=== PATIENT | male | born 1950 | race Caucasian/White ===

== ENCOUNTER 2021-04-24 12:01 | Emergency (ER) | payer MEDICARE, MEDICAID ==
[~2021-04-24] VITALS: Ht 172.7 cm; Wt 63.5 kg
[2021-04-24] MEDS ORDERED: ATROPINE SULF 1 MG/10ml SYR IM ONE (12:02)
[2021-04-24] MEDS ORDERED: SODIUM BICARBONATE 8.4% INJ 50ML SYRINGE IV ONE (12:02)
[2021-04-24] MEDS ORDERED: EPINEPHrine HCL 1 MG/10 ML SYRG IV ONE (12:02)
[2021-04-24] MEDS ORDERED: DEXTROSE (50%) 50ML SYRG IV ONE (12:02)
[2021-04-24 12:27] VITALS: BP 0/0
== END 2021-04-25 04:12 ==
LOC: ER 12:01 → EDBD 12:01 → ER 04-25 04:12
DX: I46.9 Cardiac arrest, cause unspecified (principal); I10 Essential (primary) hypertension
CPT/HCPCS: 31500; 92950; 99285; J0171; J7042